=== PATIENT | female | born 1995 | race African-American/Black ===

== ENCOUNTER 2025-09-18 09:10 | Emergency (ER) | payer BC, MEDICAID, SELFPAY ==
[2025-09-18 09:12] VITALS: BP 121/75; PULSE 67; RESP 16; O2SAT 100
[2025-09-18 09:18] VITALS: BP 121/68; PULSE 62; RESP 16; TEMP 36.6; O2SAT 100
[2025-09-18 09:26] VITALS: O2SAT 100
--- NOTE | 2025-09-18 09:30 | ED_ITS ---
HPI - URI/Sore Throat General Chief Complaint: Upper Respiratory Infection Stated Complaint: ST Time Seen by Provider: 09/18/25 09:20 Source: patient and RN notes reviewed Mode of arrival: ambulatory Limitations: no limitations History of Present Illness HPI Narrative: Year old female presents to the ER complain of upper respiratory symptoms for approximately 5-6 days. Patient reports congestion, cough, sore throat, body aches. Patient thought she was getting better with today with ortho stating sinus pressure, congestion, sore throat. Patient denies any other upper respiratory symptoms, fevers, nausea, vomiting, diarrhea, chest pain, difficulty breathing abdominal pain, urinary symptoms, chills, or any other symptoms. Patient has been taking [id number] sore throat medicine to help with symptoms. Patient denies any significant past medical history. Patient requesting test. Related Data Allergies Allergy/AdvReac Type Severity Reaction Status Date / Time No Known Allergies Allergy Verified 09/18/25 10:46 Review of Systems Review of Systems: CONSTITUTIONAL: Denies fever, chills, or sweats. Positive for body aches EYES: Denies visual changes, redness, or discharge. ENT: Positive for congestion, sore throat. Negative for rhinorrhea Or otalgia. CARDIOVASCULAR: Denies chest pain, palpitations, or edema. RESPIRATORY: Positive for cough. Negative for dyspnea or wheezing. GASTROINTESTINAL: Denies abdominal pain, nausea, vomiting, or diarrhea. GENITOURINARY: Denies dysuria or hematuria. SKIN: Denies rash or itching. MUSCULOSKELETAL: Denies back pain, joint pain, or myalgia. NEUROLOGIC: Denies headache, numbness, or weakness. PSYCHIATRIC: Denies anxiety or depression. All other systems reviewed are negative, except as documented in HPI. PMFSH Comments At the time of my signature, I reviewed and agree with the nursing past medical, surgical, social, and family history. There is no relevant family history pertinent to the patient complaint. Exam Narrative: GENERAL: This is a well-nourished, well-developed adult, in no apparent distress. They are non ill-appearing, nontoxic appearing. HEAD: normocephalic, atraumatic. EYES: Sclera clear/white. Vision is grossly intact. Conjunctiva normal bilaterally. Extraocular movements intact. EARS: External ears normal, auditory canals clear and without drainage, TMs without erythema or perforation. Hearing grossly intact. NOSE: External nose normal with no obvious nasal discharge, nasal turbinates erythematous, no rhinorrhea. THROAT: Mucous membranes moist, posterior pharynx erythematous without exudate. Uvula is midline. Postnasal drip present. NECK: Neck supple, non-tender without lymphadenopathy, masses or thyromegaly. CARDIOVASCULAR: Regular rate and rhythm without murmurs, gallops, or rubs. RESPIRATORY: Clear to auscultation. Breath sounds equal bilaterally. No wheezes, rales, or rhonchi. SKIN: warm, Dry, intact with no suspicious lesions or rash, good texture and turgor. NEURO: awake, alert, and oriented to person, place and time. There were no obvious focal neurologic abnormalities. EXTREMITIES: No joint tenderness, effusion, or edema noted. Course Course Emergency Course: Portions of this record may have been created with voice recognition software Vital Signs Vital signs: Vital Signs Pulse Rate 67 09/18/25 09:12 Respiratory Rate 16 09/18/25 09:12 Blood Pressure 121/75 09/18/25 09:12 Pulse Oximetry 100 09/18/25 09:12 Oxygen Delivery Room Air 09/18/25 09:12 Temperature 98 F 09/18/25 09:18 Pulse Rate 62 09/18/25 09:18 Respiratory Rate 16 09/18/25 09:18 Blood Pressure 121/68 09/18/25 09:18 Pulse Oximetry 100 09/18/25 09:26 Oxygen Delivery Room Air 09/18/25 09:26 MDM - URI/Sore Throat MDM Narrative Medical decision making narrative: test negative. Rapid COVID, flu, RSV, strep were negative. Given patient's length of symptoms and waxing and waning of of symptoms will go ahead treat for bacterial sinusitis. Will treat with Augmentin. Discussed physical exam findings. Advised supportive measures and signs/symptoms to go to the ER. Pt is appropriate for outpt treatment and f/u. Differential Diagnosis Differential diagnosis: Likely upper respiratory infection, otitis media, sinusitis, viral infection and pharyngitis Lab Data Labs: Lab Results 09/18/25 09/18/25 Range/Units 09:30 09:31 POC Urine HCG, Qual Negative (Negative) Influenza A (RT-PCR) Negative (Negative) Influenza B (RT-PCR) Negative (Negative) RSV (RT-PCR) Negative (Negative) SARS-CoV-2 RNA (RT-PCR) Negative (Negative) Group A Strep (PCR) Not detected (Negative) Discharge Plan Discharge Clinical Impression: Sinusitis Qualifiers: Sinusitis location: unspecified location Chronicity: acute Recurrence: non-recurrent Qualified Code(s): J01.90 - Acute sinusitis, unspecified Patient Disposition: Home Condition: Stable Instructions: Antibiotic Form, Sinusitis (ED) Additional Instructions: Take the antibiotics as directed and complete the course even if you start to feel better. You may use a Neti pot saline rinse 3 times a day with lukewarm distilled water Continue to take Tylenol or Motrin for pain, follow instructions on the bottle Use a humidifier or vaporizer at night. Drink plenty of water. 8-10 glasses per day. Use flonase 2 times per day for 5 days then as needed Take mucinex 2 times per day and be sure to take with 8oz of water. Follow up with Primary provider in 3-5 days Please go to the ER if he develops any difficulty breathing, chest pain, vomit ing, fevers, worsening symptoms, or any other concerns Patient Language: Bahamian Prescriptions: New amoxicillin-pot clavulanate 875-125 mg tablet 1 tablet PO Q12H 7 Days Qty: 14 0RF Follow-up/Referrals: PHYSICIAN,COMMUNICATION SKILLS INSTRUCTOR [Primary Care Provider, Internal Medicine] Time of Disposition: 10:46
[2025-09-18 10:03] LABS: BEDSIDEPREGUCG Negative (Negative)
[2025-09-18 10:08] LABS: Strep Group A RT-PCR NOT DETECTED (Negative)
--- OUTSIDE RECORDS SUMMARY | 2025-09-18 10:13 | XMS_ITS | Patient Health Record ---
Author Organization [facility] Address [address] [place], [place] [id number] Care Team Providers Care Lowerator Operator Name Role Phone Geovanna Kumar Primary Care Provider Deborah Chávez Unavailable [phone] Allergies No Known Allergies Reason For Referral No Information Medications Medication SIG (Take, Route, Frequency, Duration) Notes Start Date End Date Status PNV Plus Multivitamin 27-1 MG 1 tablet Orally Once a day; Duration: 90 day(s) 05/31/2021 Not-Taking Immunizations Vaccine Route Administration Date Status Comme nts TB, PPD, Diluted Intradermal Test ID Intradermal 07/18/2022 Administered Social History Tobacco Use: Social History Observation Description Date Details (start date - stop date) Never Smoker NA - NA Sex Assigned At : Social History Observation Description Sex Assigned At Female Tobacco Use/Smoking Question Answer Notes Are you a: never smoker Sexual History Question Answer Notes Had sex in the past 12 months (vaginal, oral, or anal)? Yes with Men only Tobacco use other than smoking: Question Answer Notes Are you an other tobacco user? No SBIRT (2018 Edition) Question Answer Notes Patient refused/declined SBIRT screening at this time? No Interpretation Positive Total Count 3 How many times in the past y ear have you used an illegal drug or used a prescription medication for non-medical reasons? 1 or more Interpretation Negative SCORE 1 3. How often do you have five or more drinks on one occasion? Never 2. How many drinks containin g alcohol do you have on a typical day when you are drinking? 1 or 2 1. How often do you have a drink containing alco hol? 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 Problems Problem Type SNOMED Code ICD Code Onset Dates Problem Status W/U Status Risk Notes Problem Finding related to (410148445) related conditions, unspecified, first trimester (O26.91) Active confirm Problem Viral screening (576468894) Encounter for screening for other viral diseases (Z11.59) Active confirmed Problem test equivocal (334815060) Encounter for test, result unknown (Z32.00) Active confirmed Problem Surrogate (588452189) state, gestational carrier (Z33.3) Active confirmed Problem Screening for malignant neoplasm of cervix (614319657) Cervical cancer screening (Z12.4) Active confirmed Plan Of Treatment Pending Test Test Name Order Date Ultrasound : (OB) First Trimester 2020 Ultrasound : (OB) First Trimester 2020 TRICHOMONAS PCR 12/29/2020 Human Immunodeficiency Virus (HIV MSPHL) 12/29/2020 RPR 12/29/2020 Urine Human Chronic Gonadotropin (Pregna ncy) 12/29/2020 CHLAMYDIA/ N. GONORRHOEAE RNA, Throat TIQ MISSING INFO 09/07/2021 Insurance Providers Payer Name Payer Address Payer Phone Subscriber Number Group Number Insured Name Patient Relationship to Insured Coverage Start Date Coverage End Date Home State Health Plan [address] [facility] [place] [phone] [id number] Sri Kumar Self - patient is the insured [employer] [address] [place] [id number] [phone] [id number] Sri Kumar Self - patient is the insured 0 [employer] [place] [employer] [place] [address] [place] [phone] [id number] Sri Kumar Self - patient is the insured 0
[2025-09-18 10:22] LABS: Influenza A QL RT-PCR Negative (Negative); Influenza B QL RT-PCR Negative (Negative); RSV RNA, RT-PCR Negative (Negative); SARS-CoV-2 RNA PCR Negative (Negative)
== END 2025-09-18 11:01 | disposition home or self-care (01) ==
DX: J01.90 Acute sinusitis, unspecified (principal); Z20.822 Contact with and (suspected) exposure to COVID-19
CPT/HCPCS: 81025; 87637; 87651; 99283